=== PATIENT | male | born 1945 | race Caucasian/White ===

== ENCOUNTER 2017-09-27 13:00 | Emergency (ER) | payer MEDICARE, BC ==
[2017-09-27] MEDS ORDERED: Ondansetron 4 MG/2 ML SDV IVPUSH ONE (13:50)
--- NOTE | 2017-09-27 13:59 | EDM.PDOC ---
ED HPI GENERAL MEDICAL PROBLEM - General Chief Complaint: General Stated Complaint: HIGH HP/NAUSEA/DIZZYY Time Seen by Provider: 09/27/17 13:40 Source of Information: Reports: Patient, Family History Limitations: Reports: No Limitations - History of Present Illness INITIAL COMMENTS - FREE TEXT/NARRATIVE: 72 yo with hx of CAD, newly diagnosed alzhemier dementia presents with concerns of nausea and feeling generally unwell. Proctor normally when he went to bed last night. Woke up this AM with nausea and "feeling off". 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 He has noticed no dyspnea, chest pain, or exercise intolerance with this. Proctor nausea when he woke up, walked around his home and denies dyspnea or chest pain. He is currently concerned this may be another CO, reports history of what sounds to be an NSTEMI in [place] in 1993. No actual vomiting. No fevers. No cough. No abdominal pain. Normal BMs, no blood. No recent medication changes. No headache, focal weakness , speech changes. Onset: Today Duration: Hour(s): - Related Data Allergies Allergy/AdvReac Type Severity Reaction Status Date / Time fentanyl Allergy Other Verified 09/27/17 13:22 Home Meds: Home Meds Aspirin 81 mg PO DAILY 09/27/17 [History] Atenolol 100 mg PO DAILY 09/27/17 [History] Ca/D3/Mag#11/Zinc/Front Desk Agent/Holger/Bor [Caltrate 600+D Plus Tablet] 1 tab PO DAILY 09/27 [History] Donepezil [Aricept] 10 mg PO BEDTIME 09/27/17 [History] Magnesium 500 mg PO DAILY 09/27/17 [History] Multivitamin [Multi-Vitamin Daily] 1 tab PO DAILY 09/27/17 [History] Ondansetron [Zofran ODT] 4 mg PO Q4H PRN #10 tab.dis 09/27/17 [Rx] Ubidecarenone [Co Q-10] 100 mg PO DAILY 09/27/17 [History] Past Medical History Cardiovascular History: Reports: [place] Neurological History: Reports: Other (See Below) Other Neuro History: new diagnosis of dementia Psychiatric History: Reports: Dementia Oncologic (Cancer) History: Reports: Prostate - Infectious Disease History Infectious Disease History: Reports: Chicken Pox, Measles, Mumps - Past Surgical History GI Surgical History: Reports: Hernia Repair/Other Male Surgical History: Reports: Prostatectomy Musculoskeletal Surgical History: Reports: Hip Replacement, Shoulder Surgery, Other (See Below) Other Musculoskeletal Surgeries/Procedures:: back surgery Social & Family History - Tobacco Use Smoking Status *Q: Former Smoker Used Tobacco, but Quit: Yes Month/Year Tobacco Last Used: many years ago - Caffeine Use Caffeine Use: Reports: Coffee, Soda, Tea - Recreational Drug Use Recreational Drug Use: No ED ROS GENERAL - Review of Systems Review Of Systems: See Below Constitutional: Reports: Weakness HEENT: Reports: No Symptoms Respiratory: Reports: No Symptoms Cardiovascular: Reports: No Symptoms Endocrine: Reports: No Symptoms GI/Abdominal: Reports: Nausea : Reports: No Symptoms Musculoskeletal: Reports: No Symptoms Skin: Reports: No Symptoms Neurological: Reports: No Symptoms Psychiatric: Reports: No Symptoms Hematologic/Lymphatic: Reports: No Symptoms Immunologic: Reports: No Symptoms ED EXAM, GENERAL - Physical Exam Exam: See Below Exam Limited By: No Limitations General Appearance: Alert, No Apparent Distress Ears: Normal External Exam Nose: Normal Inspection Head: Atraumatic, Normocephalic Respiratory/Chest: No Respiratory Distress Cardiovascular: Regular Rate, Rhythm GI/Abdominal: Soft, Non-Tender Extremities: Normal Inspection Neurological: Alert, Oriented, CN II-XII Intact, Normal Cognition, Other ( speech is fluid, extremity strength 5/5 and symmetric) Psychiatric: Normal Affect Skin Exam: Warm, Dry Course - Vital Signs Last Recorded V/S: Last Vital Signs Temp 35.8 C 09/27/17 13:14 Pulse 53 L 09/27/17 14:49 Resp 10 L 09/27/17 14:49 BP 159/78 H 09/27/17 14:49 Pulse Ox 99 09/27/17 14:49 - Orders/Labs/Meds Orders: Active Orders 24 hr Category Date Time Status EKG Documentation Completion [RC] ASDIRECTED Care 09/27/17 13:27 Active Lactated Ringers [Ringers, Lactated] 1,000 ml Med 09/27/17 14:00 Active IV ASDIRECTED EKG 12 Lead [EK] Routine Ther 09/27/17 13:26 Ordered Medication Orders Lactated Ringer's (Ringers, Lactated) 1,000 mls @ 1,000 mls/hr IV ASDIRECTED MAYCOL Last Admin: 09/27/17 14:07 Dose: 1,000 mls/hr Labs: Laboratory Tests 09/27/17 09/27/17 09/27/17 Range/Units 14:01 14:01 14:01 WBC 6.9 (4.5-11.0) K/uL RBC 4.82 (4.30-5.90) M/uL Hgb 14.9 (12.0-15.0) g/dL Hct 43.2 (40.0-54.0) % MCV 90 (80-98) fL MCH 31 (27-31) pg MCHC 35 (32-36) % Plt Count 174 (150-400) K/uL Sodium 137 L (140-148) mmol/L Potassium 4.1 (3.6-5.2) mmol/L Chloride 103 (100-108) mmol/L Carbon Dioxide 24 (21-32) mmol/L Anion Gap 14.1 H (5.0-14.0) mmol/L BUN 11 (7-18) mg/dL Creatinine 1.0 (0.8-1.3) mg/dL Est Cr Clr Drug Dosing 67.93 mL/min Estimated GFR (MDRD) > 60 (>60) Glucose 147 H (74-106) mg/dL Calcium 9.1 (8.5-10.1) mg/dL Total Bilirubin 0.7 (0.2-1.0) mg/dL AST 31 (15-37) U/L ALT 38 (12-78) U/L Alkaline Phosphatase 72 (46-116) U/L Troponin I < 0.017 (0.000-0.056) ng/mL Total Protein 6.7 (6.4-8.2) g/dL Albumin 3.6 (3.4-5.0) g/dL Globulin 3.1 (2.3-3.5) g/dL Albumin/Globulin Ratio 1.2 (1.2-2.2) 09/27/17 Range/Units 15:14 WBC (4.5-11.0) K/uL RBC (4.30-5.90) M/uL Hgb (12.0-15.0) g/dL Hct (40.0-54.0) % MCV (80-98) fL MCH (27-31) pg MCHC (32-36) % Plt Count (150-400) K/uL Sodium (140-148) mmol/L Potassium (3.6-5.2) mmol/L Chloride (100-108) mmol/L Carbon Dioxide (21-32) mmol/L Anion Gap (5.0-14.0) mmol/L BUN (7-18) mg/dL Creatinine (0.8-1.3) mg/dL Est Cr Clr Drug Dosing mL/min Estimated GFR (MDRD) (>60) Glucose (74-106) mg/dL Calcium (8.5-10.1) mg/dL Total Bilirubin (0.2-1.0) mg/dL AST (15-37) U/L ALT (12-78) U/L Alkaline Phosphatase (46-116) U/L Troponin I < 0.017 (0.000-0.056) ng/mL Total Protein (6.4-8.2) g/dL Albumin (3.4-5.0) g/dL Globulin (2.3-3.5) g/dL Albumin/Globulin Ratio (1.2-2.2) Meds: Medications Generic Name Dose Route Start Last Admin Trade Name Freq PRN Reason Stop Dose Admin Lactated Ringer's 1,000 mls @ 1,000 mls/hr 09/27/17 14:00 09/27/17 14:07 Ringers, Lactated IV 1,000 mls/hr ASDIRECTED MAYCOL Administration Discontinued Medications Generic Name Dose Route Start Last Admin Trade Name Freq PRN Reason Stop Dose Admin Ondansetron HCl 4 mg 09/27/17 13:50 09/27/17 14:05 Zofran IVPUSH 09/27/17 13:51 4 mg ONETIME ONE Administration Departure - Departure Time of Disposition: 16:00 Disposition: Home, Self-Care 01 Condition: Good Clinical Impression: Nausea in adult - Discharge Information *PRESCRIPTION DRUG MONITORING PROGRAM REVIEWED*: No *COPY OF PRESCRIPTION DRUG MONITORING REPORT IN PATIENT BONIFACIO: No Prescriptions: Ondansetron [Zofran ODT] 4 mg PO Q4H PRN #10 tab.dis PRN Reason: Nausea Instructions: Nausea, Adult Referrals: PCP,None [Primary Care Provider] - Forms: ED Department Discharge Care Plan Goals: We did not find a cause for your symptoms on your work up in the ED today Please make a follow up appointment with a primary doctor Return to the ER for worsening symptoms or new symptoms such as increasing pain , fever, or shortness of breath - My Orders Last 24 Hours: My Active Orders 09/27/17 13:26 EKG 12 Lead [EK] Routine 09/27/17 13:27 EKG Documentation Completion [RC] ASDIRECTED 09/27/17 14:00 Lactated Ringers [Ringers, Lactated] 1,000 ml IV ASDIRECTED - Assessment/Plan Last 24 Hours: My Active Orders 09/27/17 13:26 EKG 12 Lead [EK] Routine 09/27/17 13:27 EKG Documentation Completion [RC] ASDIRECTED 09/27/17 14:00 Lactated Ringers [Ringers, Lactated] 1,000 ml IV ASDIRECTED Assessment:: 72 yo presents with concerns of fatigue and nausea. Does have cardiac history significant for prior CO in . He is primarily concerned of recurrent cardiac issues. He does have recent stressor of grandson being diagnosed with worsening cancer I find his history quite atypical for ACS - no CP or dyspnea with significant exertion working in his yard the last couple days EKG is non-ischemic Electrolytes, CBC, and troponin x2 are unremarkable. He feels significantly better after IVF and dose of zofran No abdominal tenderness or pain to suggest surgical pathology With benign exam, vitals, labs believe it is safe to treat symptomatically. Have given him a script of ODT zofran He is going to establish a local PCP He will return to the ER for worsening symptoms.
[2017-09-27] MEDS ORDERED: Lactated Ringers 1,000 ML IV SCH (14:00)
== END 2017-09-27 16:17 | disposition home or self-care (01) ==
LOC: JP.ED 13:00
DX: R11.0 Nausea (principal); Z88.8 Allergy status to other drugs, medicaments and biological substances; Z87.891 Personal history of nicotine dependence
CPT/HCPCS: 36415; 80053; 84484; 85027; 93005; 96361; 96374; 99284; J2405; J7120

== ENCOUNTER 2017-10-22 13:46 | Emergency (ER) | payer MEDICARE, BC ==
--- NOTE | 2017-10-22 14:55 | EDM.PDOC ---
ED HPI GENERAL MEDICAL PROBLEM - General Chief Complaint: General Stated Complaint: DIZZY Time Seen by Provider: 10/22/17 14:52 Source of Information: Reports: Patient History Limitations: Reports: No Limitations - History of Present Illness INITIAL COMMENTS - FREE TEXT/NARRATIVE: pt had vertigo on 09/26 and he has similar symptoms at this time. Onset: Today, Sudden, Other (pt was at the computer and he pushed back in his chair and the room started to spin and he felt nauseated. ) Duration: Hour(s): Location: Reports: Head Associated Symptoms: Reports: No Other Symptoms - Related Data Allergies Allergy/AdvReac Type Severity Reaction Status Date / Time fentanyl Allergy Other Verified 09/27/17 13:22 Home Meds: Home Meds Aspirin 81 mg PO DAILY 09/27/17 [History] Atenolol 100 mg PO DAILY 09/27/17 [History] Ca/D3/Mag#11/Zinc/Rfid Systems Engineer/Holger/Bor [Caltrate 600+D Plus Tablet] 1 tab PO DAILY 09/27 [History] Donepezil [Aricept] 10 mg PO BEDTIME 09/27/17 [History] Magnesium 500 mg PO DAILY 09/27/17 [History] Multivitamin [Multi-Vitamin Daily] 1 tab PO DAILY 09/27/17 [History] Ubidecarenone [Co Q-10] 100 mg PO DAILY 09/27/17 [History] Past Medical History Cardiovascular History: Reports: [place] Neurological History: Reports: Other (See Below) Other Neuro History: new diagnosis of dementia Psychiatric History: Reports: Dementia Oncologic (Cancer) History: Reports: Prostate - Infectious Disease History Infectious Disease History: Reports: Chicken Pox, Measles, Mumps - Past Surgical History GI Surgical History: Reports: Hernia Repair/Other Male Surgical History: Reports: Prostatectomy Musculoskeletal Surgical History: Reports: Hip Replacement, Shoulder Surgery, Other (See Below) Other Musculoskeletal Surgeries/Procedures:: back surgery Social & Family History - Tobacco Use Smoking Status *Q: Never Smoker - Caffeine Use Caffeine Use: Reports: Coffee - Recreational Drug Use Recreational Drug Use: No ED ROS GENERAL - Review of Systems Review Of Systems: See Below Constitutional: Reports: No Symptoms HEENT: Reports: No Symptoms Respiratory: Reports: No Symptoms Cardiovascular: Reports: No Symptoms Endocrine: Reports: No Symptoms GI/Abdominal: Reports: Nausea : Reports: No Symptoms Musculoskeletal: Reports: No Symptoms Skin: Reports: No Symptoms Neurological: Reports: No Symptoms Psychiatric: Reports: Anxiety ED EXAM, GENERAL - Physical Exam Exam: See Below Free Text/Narrative:: pt is having vertigo. . He has been nauseated. Exam Limited By: No Limitations General Appearance: Alert, Other (pupils react. He has some vertical nystagmus. ) Ears: Normal TMs Nose: Normal Inspection Throat/Mouth: Normal Inspection Head: Atraumatic Neck: Normal Inspection Respiratory/Chest: No Respiratory Distress Cardiovascular: Regular Rate, Rhythm GI/Abdominal: Soft, Non-Tender (Male) Exam: Deferred Rectal (Males) Exam: Deferred Back Exam: Normal Inspection Extremities: Normal Inspection Neurological: Alert, Oriented, Normal Cognition Psychiatric: Normal Affect, Other (pt does have some dementia. ) Course - Vital Signs Last Recorded V/S: Last Vital Signs Temp 36.1 C 10/22/17 16:46 Pulse 54 L 10/22/17 16:46 Resp 14 10/22/17 16:46 BP 136/61 10/22/17 17:08 Pulse Ox 100 10/22/17 16:46 - Orders/Labs/Meds Orders: Active Orders 24 hr Category Date Time Status EKG Documentation Completion [RC] ASDIRECTED Care 10/22/17 14:51 Active Head wo Cont [CT] Stat Exams 10/22/17 14:51 Taken Sodium Chloride 0.9% [Normal Saline] 1,000 ml Med 10/22/17 16:15 Active IV ASDIRECTED EKG 12 Lead [EK] Routine Ther 10/22/17 14:51 Ordered Medication Orders Sodium Chloride (Normal Saline) 1,000 mls @ 999 mls/hr IV ASDIRECTED MAYCOL Last Admin: 10/22/17 16:54 Dose: 999 mls/hr Labs: Laboratory Tests 10/22/17 10/22/17 10/22/17 Range/Units 15:02 15:02 16:44 WBC 8.2 (4.5-11.0) K/uL RBC 4.54 (4.30-5.90) M/uL Hgb 13.8 (12.0-15.0) g/dL Hct 40.7 (40.0-54.0) % MCV 90 (80-98) fL MCH 30 (27-31) pg MCHC 34 (32-36) % Plt Count 182 (150-400) K/uL Neut % (Auto) 83 H (36-66) % Lymph % (Auto) 11 L (24-44) % Slope % (Auto) 5 (2-6) % Eos % (Auto) 1 L (2-4) % Baso % (Auto) 0 (0-1) % Sodium 140 (140-148) mmol/L Potassium 4.0 (3.6-5.2) mmol/L Chloride 105 (100-108) mmol/L Carbon Dioxide 26 (21-32) mmol/L Anion Gap 8.6 (5.0-14.0) mmol/L BUN 10 (7-18) mg/dL Creatinine 1.0 (0.8-1.3) mg/dL Est Cr Clr Drug Dosing 69.00 mL/min Estimated GFR (MDRD) > 60 (>60) Glucose 146 H (74-106) mg/dL Calcium 8.8 (8.5-10.1) mg/dL Total Bilirubin 0.5 (0.2-1.0) mg/dL AST 24 (15-37) U/L ALT 32 (12-78) U/L Alkaline Phosphatase 68 (46-116) U/L Total Protein 6.1 L (6.4-8.2) g/dL Albumin 3.1 L (3.4-5.0) g/dL Globulin 3.0 (2.3-3.5) g/dL Albumin/Globulin Ratio 1.0 L (1.2-2.2) Urine Color Yellow Urine Appearance Clear Urine pH 8.0 (4.5-8.0) Ur Specific [place] 1.010 (1.008-1.030) Urine Protein Negative (NEGATIVE) mg/dL Urine Glucose (UA) Normal (NEGATIVE) mg/dL Urine Ketones Negative (NEGATIVE) mg/dL Urine Occult Blood Negative (NEGATIVE) Urine Nitrite Negative (NEGAITVE) Urine Bilirubin Negative (NEGATIVE) Urine Urobilinogen Normal (NORMAL) mg/dL Ur Leukocyte Esterase Negative (NEGATIVE) Urine RBC 0-5 (0-5) Urine WBC 0-5 (0-5) Ur Epithelial Cells Few Amorphous Sediment Not seen Urine Bacteria Few Urine Mucus Not seen Meds: Medications Generic Name Dose Route Start Last Admin Trade Name Freq PRN Reason Stop Dose Admin Sodium Chloride 1,000 mls @ 999 mls/hr 10/22/17 16:15 10/22/17 16:54 Normal Saline IV 999 mls/hr ASDIRECTED MAYCOL Administration Discontinued Medications Generic Name Dose Route Start Last Admin Trade Name Venkat PRN Reason Stop Dose Admin Meclizine HCl 25 mg 10/22/17 16:16 10/22/17 16:47 Antivert PO 10/22/17 16:17 25 mg ONETIME ONE Administration - Re-Assessments/Exams Free Text/Narrative Re-Assessment/Exam: 10/22/17 17:53 pt had a head scan which was neg. his lab work looks good. He was up to the bathroom and felt better. He was given a liter of fluid and zoforan 4 mg. He was given antivert 25 po Departure - Departure Time of Disposition: 17:47 Disposition: Home, Self-Care 01 Condition: Fair Clinical Impression: Inner ear dysfunction - Discharge Information Referrals: PCP,None [Primary Care Provider] - Forms: ED Department Discharge Care Plan Goals: push fluids, antivert 25 1 tab tid for the next 3 days. after that use the antivert prn. low activity for the next 2 days. - My Orders Last 24 Hours: My Active Orders 10/22/17 14:51 EKG Documentation Completion [RC] ASDIRECTED Head wo Cont [CT] Stat EKG 12 Lead [EK] Routine 10/22/17 16:15 Sodium Chloride 0.9% [Normal Saline] 1,000 ml IV ASDIRECTED - Assessment/Plan Last 24 Hours: My Active Orders 10/22/17 14:51 EKG Documentation Completion [RC] ASDIRECTED Head wo Cont [CT] Stat EKG 12 Lead [EK] Routine 10/22/17 16:15 Sodium Chloride 0.9% [Normal Saline] 1,000 ml IV ASDIRECTED
[2017-10-22] MEDS ORDERED: Sodium Chloride 0.9% 1,000 ML IV SCH (16:15)
[2017-10-22] MEDS ORDERED: Meclizine 25 MG Tab PO ONE (16:16)
== END 2017-10-22 18:04 | disposition home or self-care (01) ==
LOC: JP.ED 13:46
DX: H83.2X9 Labyrinthine dysfunction, unspecified ear (principal); I25.2 Old myocardial infarction; Z88.8 Allergy status to other drugs, medicaments and biological substances; Z79.82 Long term (current) use of aspirin; Z79.899 Other long term (current) drug therapy
CPT/HCPCS: 36415; 70450; 80053; 81001; 85025; 93005; 96360; 99285-25; A9270-GY; J7030

== ENCOUNTER 2019-05-18 20:24 | Emergency (ER) | payer MEDICARE, BC ==
--- NOTE | 2019-05-18 20:41 | EDM.PDOC ---
ED HPI GENERAL MEDICAL PROBLEM - General Chief Complaint: Lower Extremity Injury/Pain Stated Complaint: MEDICAL Time Seen by Provider: 05/18/19 20:50 Source of Information: Reports: Patient, Family (spouse) History Limitations: Reports: Other (dementia. most history from ) - History of Present Illness Onset: Today Duration: Waxing/Waning Location: Reports: Lower Extremity, Right Quality: Reports: Ache Severity: Moderate Improves with: Reports: None Worsens with: Reports: Movement Context: Reports: Activity, Other (walks daily but today walked 3.5mi w/ and that is significantly longer than usual.) Associated Symptoms: Denies: Fever/Chills, Shortness of Breath, Weakness Treatments BRASS W[employer] INSTRUMENTS TUBE BENDER: Reports: NSAIDS - Related Data Allergies Allergy/AdvReac Type Severity Reaction Status Date / Time fentanyl Allergy Other Verified 05/18/19 20:41 Sulfa (Sulfonamide Allergy Rash Verified 05/18/19 20:41 Antibiotics) Home Meds: Home Meds Aspirin 81 mg PO DAILY 09/27/17 [History] Carlos/D3/Mag11/Zinc/Head Of Stock/Holger/Bor [Caltrate 600+D Plus Tablet] 1 tab PO DAILY 09/27 [History] Donepezil [Aricept] 10 mg PO BEDTIME 09/27/17 [History] Magnesium 500 mg PO DAILY 09/27/17 [History] Multivitamin [Multi-Vitamin Daily] 1 tab PO DAILY 09/27/17 [History] Ubidecarenone [Co Q-10] 100 mg PO DAILY 09/27/17 [History] Losartan [Cozaar] 50 mg PO DAILY 05/18/19 [History] Sertraline [Zoloft] 50 mg PO DAILY 05/18/19 [History] atorvaSTATin [Lipitor] 40 mg PO DAILY 05/18/19 [History] Past Medical History Cardiovascular History: Reports: [place] Neurological History: Reports: Other (See Below) Other Neuro History: new diagnosis of dementia Psychiatric History: Reports: Dementia Oncologic (Cancer) History: Reports: Prostate - Infectious Disease History Infectious Disease History: Reports: Chicken Pox, Measles, Mumps - Past Surgical History GI Surgical History: Reports: Hernia Repair/Other Male Surgical History: Reports: Prostatectomy Musculoskeletal Surgical History: Reports: Hip Replacement, Shoulder Surgery, Other (See Below) Other Musculoskeletal Surgeries/Procedures:: back surgery Social & Family History - Caffeine Use Caffeine Use: Reports: Coffee Review of Systems - Review of Systems Review Of Systems: See Below Constitutional: Denies: Fever, Weakness Eyes: Reports: No Symptoms Ears: Reports: No Symptoms Mouth/Throat: Reports: No Symptoms Respiratory: Reports: No Symptoms Cardiovascular: Reports: No Symptoms Musculoskeletal: Reports: Leg Pain (R groin and upper thigh). Denies: Back Pain Skin: Reports: No Symptoms. Denies: Bruising Neurological: Denies: Headache ED EXAM, GENERAL - Physical Exam Exam: See Below Exam Limited By: Other (alleged mild dementia) General Appearance: Alert, WD/WN, No Apparent Distress Respiratory/Chest: No Respiratory Distress, Lungs Clear Cardiovascular: Normal Peripheral Pulses Peripheral Pulses: 2+: Dorsalis Pedis (R) GI/Abdominal: Soft, Non-Tender. No: Distended, Hernia (Male) Exam: No Hernia, Normal Inspection, Circumcised. No: Rash, Scrotal Swelling, Urethral Discharge Back Exam: Normal Inspection, Full Range of Motion. No: Vertebral Tenderness Extremities: Normal Inspection, Normal Range of Motion (able to stand and flex R hip to 90 degrees w/no pain. Able to sit and cross R leg over L leg w/no exxpression of pain.), No Pedal Edema, Normal Capillary Refill. No: Debra's Sign, Limited Range of Motion, Mottled, Pallor Neurological: Alert, No Motor/Sensory Deficits Skin Exam: Warm, Dry, Intact Course - Vital Signs Last Recorded V/S: Last Vital Signs Temp 35.6 C L 05/18/19 20:41 Pulse 72 05/18/19 20:41 Resp 16 05/18/19 20:41 BP 161/77 H 05/18/19 20:41 Pulse Ox 97 05/18/19 20:41 Departure - Departure Time of Disposition: 21:00 Disposition: Home, Self-Care 01 Condition: Good Clinical Impression: Muscle strain - Discharge Information *PRESCRIPTION DRUG MONITORING PROGRAM REVIEWED*: No *COPY OF PRESCRIPTION DRUG MONITORING REPORT IN PATIENT BONIFACIO: No Instructions: Adductor Muscle Strain Referrals: Gilles Vieira MD [Primary Care Provider] - Forms: ED Department Discharge Sepsis Event Note - Focused Exam Vital Signs: Vital Signs Temp Pulse Resp BP Pulse Ox 05/18/19 20:41 35.6 C L 72 16 161/77 H 97 05/18/19 20:38 35.6 C L 72 16 161/77 H 97 Date Exam was Performed: 05/18/19 Time Exam was Performed: 21:24
== END 2019-05-18 21:11 | disposition home or self-care (01) ==
LOC: JP.ED 20:24
DX: S86.911A Strain of unspecified muscle(s) and tendon(s) at lower leg level, right leg, initial encounter (principal); F03.90 Unspecified dementia, unspecified severity, without behavioral disturbance, psychotic disturbance, mood disturbance, and anxiety; Z79.899 Other long term (current) drug therapy; I25.2 Old myocardial infarction; Z88.2 Allergy status to sulfonamides; Z88.5 Allergy status to narcotic agent; X58.XXXA Exposure to other specified factors, initial encounter
CPT/HCPCS: 99282; 99283